=== PATIENT | male | born 1960 | race Caucasian/White ===

== ENCOUNTER 2020-05-02 11:13 | Emergency (ER) | payer MEDICARE ==
[~2020-05-02] VITALS: Ht 180.3 cm; Wt 111.1 kg
[~2020-05-02 11:13] MED LIST: ADVIL200 M1 PO; ATRIPLA TABLET1 TAB PO; CHLORZOXAZONE500 MG PO; HYDROCODON-ACE1 EAC9 PO; HYDROXYZINE HCL25 MG PO; PHENYTOIN SODI100 MG PO; SINGULAIR5 MG PO; VALIUM10 MG PO; ZOLPIDEM TARTRA10 MG PO
[2020-05-02] MEDS ORDERED: VANCOMYCIN 1GM/NS 250 ML 250 ML IV ONE (11:45)
[2020-05-02] MEDS ORDERED: PIPER-TAZ 3.375 GM 50 ML IV ONE (11:45)
[2020-05-02] MEDS ORDERED: PIPER-TAZ 3.375 GM 50 ML ONE (13:30)
[2020-05-02] MEDS ORDERED: VANCOMYCIN 1GM/NS 250 ML 250 ML ONE (13:30)
[2020-05-02] MEDS ORDERED: HYDROCODONE/APAP 5MG-325MG TAB PO PRN (13:45)
[2020-05-02 14:52] VITALS: BP 149/77
== END 2020-05-02 15:03 | disposition other institution (70) ==
LOC: FSED 11:25
DX: M79.604 Pain in right leg (principal); L03.116 Cellulitis of left lower limb; L03.115 Cellulitis of right lower limb; E78.5 Hyperlipidemia, unspecified; R60.9 Edema, unspecified; B20 Human immunodeficiency virus [HIV] disease; J45.909 Unspecified asthma, uncomplicated; Z11.52 Encounter for screening for COVID-19
CPT/HCPCS: 80053; 85025; 99284; J2543; J3370; U0002